=== PATIENT | female | born 1940 | race Caucasian/White ===

== ENCOUNTER 2019-06-09 11:00 | Outpatient (RCR) | payer MEDICARE, SELFPAY ==
--- NOTE | 2019-03-29 09:34 | WPDANESPN ---
Anes - Prog Note Post-Op Date/Time: 03/29/19 09:34 Cardiovascular status: normal Respiratory status: normal Airway patency: baseline Mental status: baseline Post-Op hydration status: normal Pain Score (VAS): 0/10. Patient resting in bed at time of assessment, appears comfortable. Nausea with relief with pain meds. Post-procedural complaints: nausea (relief with prn meds) Patient Feedback: Patient satisfied with anesthetic care.
--- NOTE | 2019-04-04 11:53 | PTOPEVAL ---
PHYSICAL THERAPY EVALUATION AND PLAN OF CARE Thank you for referring this patient to [facility]. Jocelyn is scheduled to be seen in OP PT 2x/week for 4 weeks. Please review, sign, date and return this plan of care LUANA. I agree with and certify that the following plan of care is medically necessary. Referring Physician Date Attending Provider: Yann Spears MD Evaluation Outpatient Past Medical History Neurological History Hx Neurological Disorders No Significant History Cardiovascular History Hx Hypercholesterolemia Yes: NO MEDS Hx Hypertension Yes Hx Mitral Valve Prolapse Yes Hx Vascular Surgery Yes: FERMIN CAROTID ENDARTERECTOMY 1995 Respiratory History Hx Respiratory Disorders No Significant History Gastrointestinal History Hx Appendectomy Yes Hx Cholecystectomy Yes Hx Gastroesophageal Reflux Disease Yes Hx Hemorrhoids Yes Hx Other Gastrointestinal Disorders Yes: HIATAL HERNIA Genitourinary History Hx Genitourinary Disorders No Significant History Musculoskeletal History Hx Arthritis Yes: GENERALIZED Hx Osteoporosis Yes Hx Spinal Surgery Yes: LUMBAR LAMINECTOMY Hx Other Musculoskeletal Disorders Yes: OA LT KNEE Endocrine History Hx Hypothyroidism Yes: TAKES MED AT HS HEENT History Hx Other HEENT Disorders Yes: TMJ Integumentary History Hx Skin Disorders No Significant History Reproductive History Hx Hysterectomy Yes: 1972 Hx Other Reproductive Disorders Yes: 2010 FERMIN SALPINGO- OOPHORECTOMY Psychosocial History Hx Psychiatric Disorders No Significant History Pain History Has Past Pain Affected Your Daily Life Yes: LT KNEE Anesthesia History Hx Anesthesia Reactions No Significant History Evaluation Information Problem Diagnosis left TKA Onset 03/28/19 Subjective Information Jocelyn is here today 1 week s/p Query Text:As Reported By Patient/ left TKA. She states that her Family medical staff believes she is doing well, but she did have some constipation. Otherwise she is doing well. She does have quite a bit of pain and swelling. She and her family are working to do as instructed with home exercises . Pain Assessment Self Report Pain Assessment Left Knee(s) Pain Description Aching,Sharp Pain Frequency Acute,Continuous Current Pain Intensity 3 Lowest Pain Intensity 3 Greatest Pain Intensity 6 Pa
--- NOTE | 2019-05-03 08:55 | PTOPEVAL ---
PHYSICAL THERAPY PLAN OF CARE UPDATE AND PROGRESS REPORT Thank you for referring this patient to [facility]. Jocelyn will continue PT 2x/week for 3 weeks. She returns to visit surgeon on 05/24/2019. Please review, sign, date and return this plan of care LUANA. I agree with and certify that the following plan of care is medically necessary. Referring Physician Date Attending Provider: Yann Spears MD Evaluation Information Problem Diagnosis left TKA Onset 03/28/19 Subjective Information Jocelyn is here today 5 weeks s/ Query Text:As Reported By Patient/ p left TKA. Jocelyn reports Family that her pain is gradually decreasing and she is gradually taking less pain medications. Reports that some mornings the knee is tighter than other mornings. Walks around the house without an assistive device. Uses a straight cane in the community Self Report Pain Assessment Left Knee(s) Reported Pain Level 2 Pain Description Aching,Sharp Pain Frequency Acute,Continuous Pain Aggravating Factors Exercise/Activity,Palpation, Stair Climbing,Walking Pain Score Pain Score 2: Self Report Additional Pain Score Comments slowly decreasing pain medication, feels pretty good this morning Knee Range of Motion Left Knee Flexion Range of Motion - Active 90 Knee Flexion Range of Motion - Passive 106 Knee Extension Range of Motion - Active -5 Query Text: Knee Range of Motion Limitations Pain,Soft Tissue Restriction Knee Range of Motion Comments spongey end feel during PROM indicating that more ROM is available Hip Strength Left Hip Flexion Strength 4 Good Hip Extension Strength 4- Good - Knee Strength Left Knee Flexion Strength 4 Good Knee Extension Strength 4- Good - Palpation continues to report hypersensitivity over lower leg and incision site; distal end of incision is mildly adhesed -- instructed to use gentle lotion to gentle improve mobility of scar Gait Assessment Ambulation Assistive Devices Cane Weight Bearing Status - Left As Tolerated Weight Bearing Status - Right Full Maintains Weight Bearing Status Yes Weight Bearing Comment throughout appointment Ambulat
--- NOTE | 2019-05-26 08:55 | PTOPEVAL ---
PHYSICAL THERAPY PLAN OF CARE UPDATE AND PROGRESS REPORT Thank you for referring this patient to [facility]. Jocelyn will continue 2x/week for 4 weeks. Please review, sign, date and return this plan of care LUANA. I agree with and certify that the following plan of care is medically necessary. Referring Physician Date Attending Provider: Yann Spears MD Evaluation Information Diagnosis left TKA Onset 03/28/19 Subjective Information Jocelyn is here today 9 weeks s/ Query Text:As Reported By Patient/ p left TKA. Jocelyn saw Family physician recently who will see her in a year and recommended two techniques to help increased knee flexion and extension. Also reports he requests another month of therapy. Jocelyn has good days and bad days. No longer uses an assistive device. Reports she does her exerises regularly. Reported Pain Level 3 Interventions Used By Clinicians Exercise Knee Range of Motion Left Knee Flexion Range of Motion - Active 99 Knee Flexion Range of Motion - Passive 108 Knee Extension Range of Motion - Active -5 Query Text: Knee Range of Motion Limitations Pain,Soft Tissue Restriction Hip Strength Left Hip Flexion Strength 4+ Good + Hip Extension Strength 4+ Good + Knee Strength Left Knee Flexion Strength 5 Normal Knee Extension Strength 4+ Good + Gait Assessment Ambulation Assistive Devices None Weight Bearing Status - Left As Tolerated Weight Bearing Status - Right Full Maintains Weight Bearing Status Yes Ambulation Destination In Gym Ambulation Ability Independent Gait Pattern Assessment Gait Pattern Antalgic Gait Gait Pattern Observed Decreased Stride Length - Left Other Gait Observations decreased toe off left with decreased DF and knee flexion Stair Climbing Assessment Stair Climbing Assistive Devices Railings Weight Bearing Status - Left As Tolerated Weight Bearing Status - Right Full Maintains Weight Bearing Status Yes Number of Steps Climbed (Steps) 4 Number of Repetitions (Repetitions) 4 Technique Alternating Steps Stair Climbing Direction Both Up and Down Stair Climbing Ability Independent Clinical Summary Joceyln is 9 weeks s/p left TKA. She is progressing to meet her functional goals. Her ROM continues to be her greatest
--- NOTE | 2019-06-02 08:00 | PCPTNOTE ---
Patient called & cancelled scheduled appointment this date due to her knees bothering her.
--- NOTE | 2019-06-14 08:49 | PCPTNOTE ---
Patient called & cancelled scheduled appointment this date due to her knees bothering her. She states she will try to be here .
--- NOTE | 2019-06-16 08:44 | PCPTNOTE ---
Patient called & cancelled scheduled appointment today, 06/16/2019, and for her next and last scheduled appointment on 06/21/2019 due to concerns regarding Ken virus (COVID-19)
--- NOTE | 2019-06-20 11:28 | PCPTNOTE ---
PHYSICAL THERAPY DISCHARGE NOTE Attending Provider: Yann Spears MD Patient:Jocelyn Escoto Date of :1940 Jocelyn called to cancel her remaining appointments in order to self-quarantine per CDC guidelines as an at risk patient for acquiring COVID-19. Her last measured ROM without overpressure was lacking 8 degrees of extension and 104degrees of flexion. Her last appointment was on 06/09/2019. The goals have been partially achieved. If further services are needed, please communicate with us to arrange the services. Thank you for referring Ms. Escoto to [facility]. Please review, sign, date and return this discharge summary LUANA. I have been updated about the patient's current status and I agree with discharge from the above service at this time. Referring Physician Date
== END 2019-06-20 12:13 | disposition home or self-care (01) ==
LOC: ANHPT 11:00
PROVIDERS: PCP Internal Medicine; Visit Provider Orthopaedic Surgery
DX: Z47.1 Aftercare following joint replacement surgery (principal); M17.12 Unilateral primary osteoarthritis, left knee; Z96.652 Presence of left artificial knee joint
CPT/HCPCS: 97110; 97140; 97162

== ENCOUNTER → 2020-11-20 07:35 | Outpatient (CLI) | payer MEDICARE, SELFPAY ==
--- NOTE | ~2020-11-20 | MM_ITS ---
EXAMINATION: MM screening rama BI w malou HISTORY: Screening mammogram TECHNIQUE: Craniocaudal and mediolateral oblique 3-D tomosynthesis images were obtained and synthetic 2-D images were generated. CAD analysis was submitted and interpreted. COMPARISON: 11/29/2016, 11/19/2015, 11:15 BREAST PARENCHYMAL COMPOSITION: The breasts are almost entirely fatty. FINDINGS: There is no evidence of suspicious mass, calcification, or architectural distortion to sugg est malignancy in either breast. There has been no suspicious interval change. IMPRESSION: 1. No mammographic evidence of malignancy. 2. Recommend routine screening mammography while the patient remains in good health. BI-RADS Category 1: Negative Reviewed, dictated and finalized at location A. IMPRESSION: 1. No mammographic evidence of malignancy. 2. Recommend routine screening mammography while the patient remains in good he alth. BI-RADS Category 1: Negative
== END ==
PROVIDERS: PCP Internal Medicine; Visit Provider Internal Medicine
DX: Z12.31 Encounter for screening mammogram for malignant neoplasm of breast (principal)
CPT/HCPCS: 77063; 77067

== ENCOUNTER 2021-10-08 19:45 | Emergency (ER) | payer MEDICARE, SELFPAY ==
[2021-10-08] VITALS (30 sets, daily range): BP systolic 124–148; BP diastolic 48–99; PULSE 50–65; RESP 10–17; O2SAT 89–95
--- NOTE | ~2021-10-08 | CT_ITS ---
EXAMINATION: CT lumbar spine wo con DATE: 10/08/2021 22:24 INDICATION: fall/pain . TECHNIQUE: Computed tomography (CT) of the lumbar spine was performed without intravenous contrast. A utomated exposure control and iterative reconstruction technique were employed. The dose-length produ ct was 1012.41 mGy-cm. COMPARISON: None. FINDINGS: 5 nonrib-bearing lumbar-type vertebral bodies. Pedicles intact. No pars defect. Normal vert ebral body alignment. Moderate height loss at L1, with fracture lines involving both the anterior and posterior cortices of the vertebral body. 2 mm retropulsion of fragments. Moderate L1-2 central akhil l stenosis caused by a large central osteophyte. The irregularities seen in the prior lumbar spine ra diograph at L3 and L4 are not acute fractures and likely relate to degenerative change. Severe L3-4 a nd L5-S1 central canal stenosis secondary to degenerative disc and facet changes. Multilevel moderate bilateral neural foraminal narrowing. Multilevel severe facet arthropathy. IMPRESSION: 1. L1 burst fracture, with minimal 1 to 2 mm retropulsion of fracture fragments. No other fracture de tected. 2. Severe central canal stenosis at L3-4 and L5-S1. 3. Multilevel severe facet arthropathy Reviewed, dictated and finalized at location K. IMPRESSION: 1. L1 burst fracture, with minimal 1 to 2 mm retropulsion of fracture fragments . No other fracture detected. 2. Severe central canal stenosis at L3-4 and L5-S1. 3. Multilevel severe facet arthropathy
--- NOTE | ~2021-10-08 | XR_ITS ---
EXAM: XR lumbar spine 2-3V DATE: 10/08/2021 20:54 HISTORY: FALL AT [facility], LOWER BACK PAIN . COMPARISON: None available. FINDINGS: Cholecystectomy clips. 5 nonrib-bearing lumbar-type vertebral bodies. Severely decreased b one mineral density. Moderate anterior wedge deformity at L1. Concave superior endplate deformity wit h anterior cortical irregularity at L3 and L4. Vertebral body alignment intact. 3.4 cm abdominal aort ic aneurysm. IMPRESSION: Severe osteoporosis. Moderate wedge compression fracture of L1. Subtle superior endplate fractures may be present at L3 and L4. These abnormalities are age-indeterminate, correlate with acut e pain/tenderness. Reviewed, dictated and finalized at location K. IMPRESSION: Severe osteoporosis. Moderate wedge compression fracture of L1. Sub tle superior endplate fractures may be present at L3 and L4. These abnormalitie s are age-indeterminate, correlate with acute pain/tenderness.
[2021-10-08] MEDS: ONDANSETRON INJ 4 MG/2 ML VIAL IV PUSH (20:37)
--- NOTE | 2021-10-08 21:58 | ED.FALL ---
HPI - Fall General Chief Complaint: Fall <Fabian Mcdaniel MD - Last Filed: 10/08/21 22:02> Stated Complaint: FALL WITH BACK PAIN <Fabian Mcdaniel MD - Last Filed: 10/08/21 22:02> Time Seen by Provider: 10/08/21 19:55 <Fabian Mcdaniel MD - Last Filed: 10/08/21 22:02> History of Present Illness HPI Narrative: Patient is an 81-year-old female who presents ER with low back pain. Patient was bending over to get a plug for her iPad when he she fell backwards onto her buttock. She reports she developed sudden onset pain to her low back at the level of L4 and L5. She has no numbness or tingling to her legs or groin. She has pain with attempting to stand up or leaning forward. She did not strike her head or lose consciousness. Patient reports history of bulging disks in the past. Received morphine by EMS for pain. Pain is 5/10 at rest and 6/10 with moving. Sharp and nonradiating. Patient reports nausea related to her morphine administration. <Fabian Mcdaniel MD - Last Filed: 10/08/21 22:02> Related Data Home Medications: Home Medications Medication Instructions Recorded Confirmed levothyroxine 100 mcg tablet 100 mcg PO HS 03/09/19 05/23/21 atorvastatin 80 mg tablet 80 mg PO DAILY 04/11/21 05/23/21 pantoprazole 40 mg tablet,delayed tablet PO 04/11/21 05/23/21 release apixaban 5 mg tablet (Eliquis) 5 mg PO BID 05/23/21 05/23/21 losartan 50 mg tablet 50 mg PO BID 05/23/2122 <Fabian Mcdaniel MD - Last Filed: 10/08/21 22:02> Allergies/Adverse Reactions: Allergies Allergy/AdvReac Type Severity Reaction Status Date / Time amlodipine Allergy Unknown Unknown Verified 07/04/21 09:32 amoxicillin Allergy Unknown Nausea Verified 10/08/21 19:57 atenolol [From Tenormin] Allergy Unknown Gastrointestinal Verified 07/04/21 09:32 Upset gadobenic acid Allergy Unknown Swelling Verified 10/08/21 19:57 [From CONTRAST-MRI] iohexol Allergy Unknown Swelling Verified 10/08/21 19:57 [From CONTRAST - CT, XRAY] nitrofurantoin Allergy Unknown Unknown Verified 07/04/21 09:32 Sulfa (Sulfonamide Allergy Unknown unknown Verified 10/08/21 19:57 Antibiotics) aspirin AdvReac Unknown Abdominal Verified 10/08/21 19:57 Pain Contrast Media Allergy Unknown Swelling Uncoded 10/08/21 19:57 <Fabian Mcdaniel MD - Last Filed: 10/08/21 22:02> Review of Systems Review of Systems: All systems reviewed & are unremarkable except as noted in HPI and below <Fabian Mcdaniel MD - Last Filed: 10/08/21 22:02> Gastrointestinal: Gastrointestinal: Denies abdominal pain, Reports nausea and Reports vomiting <Fabian Mcdaniel MD - Last Filed: 10/08/21 22:02> Genitourinary: Genitourinary: Denies dysuria and Denies urinary incontinence <Fabian Mcdaniel MD - Last Filed: 10/08/21 22:02> Musculoskeletal: Musculoskeletal: Reports back pain, Denies arthralgias and Denies joint swelling <Fabian Mcdaniel MD - Last Filed: 10/08/21 22:02> Integumentary/Breasts: Skin/Breast: Denies erythema and Denies rash <Fabian Mcdaniel MD - Last Filed: 10/08/21 22:02> Neurologic: Denies syncope, Denies headache(s), Denies focal weakness and Denies numbness <Fabian Mcdaniel MD - Last Filed: 10/08/21 22:02> [facility] Past Medical History Medical History: Medical History (Updated 10/08/21 @ 23:04 by Varinder Desai MD) Arthritis Bulging discs Cardiac arrhythmia Fracture of surgical neck of left humerus Gastric ulcer HLD (hyperlipidemia) Hypertension Hypothyroidism MVP (mitral valve prolapse) Osteoarthritis of knee Osteoporosis PVD (peripheral vascular disease) Torn rotator cuff right Ulcer <Fabian Mcdaniel MD - Last Filed: 10/08/21 22:02> Surgical History Surgical History: Surgical History H/O section H/O Spinal surgery H/O: hysterectomy History of appendectomy History of cholecystectomy History of end
[2021-10-08] MEDS: fentaNYL CITRATE INJ (*CRX) 100 MCG/2 ML VIAL 25 MCG IV PUSH (22:03)
[2021-10-09 00:01] VITALS: BP 130/48; PULSE 61; RESP 13; O2SAT 93
== END 2021-10-09 00:02 | disposition short-term general hospital (02) ==
PROVIDERS: Emergency Provider Emergency Medicine; PCP Internal Medicine
DX: S32.001A Stable burst fracture of unspecified lumbar vertebra, initial encounter for closed fracture (principal); M19.90 Unspecified osteoarthritis, unspecified site; E78.5 Hyperlipidemia, unspecified; I10 Essential (primary) hypertension; E03.9 Hypothyroidism, unspecified; W18.30XA Fall on same level, unspecified, initial encounter
CPT/HCPCS: 72100; 72131; 96374; 96375; 99285; J2405; J3010

== ENCOUNTER 2024-03-16 12:14 | Emergency (ER) | payer MEDICARE, SELFPAY ==
[2024-03-16] VITALS (11 sets, daily range): BP systolic 109–143; BP diastolic 40–98; PULSE 50–60; RESP 12–17; TEMP 36.2; O2SAT 77–100
--- NOTE | ~2024-03-16 | CT_ITS ---
CT head without contrast Indication: Status post fall Technique: Serial scans were obtained through the brain without the administration of contrast. Dose reduction technique was used on this scan by utilizing automated exposure control and iterative recon struction technique. The dose-length product (DLP) was 681.00 mGy-cm. Findings: There is no evidence of intracranial hemorrhage, mass lesion, or acute infarct. Extensive c hronic right MCA distribution/right frontal lobe infarct present. Chronic lacunar infarct noted in th e left external capsule. The ventricles and subarachnoid spaces are dilated, consistent with mild to moderate atrophy. Low attenuation regions are seen within the periventricular white matter bilateral ly, likely representing changes from chronic microvascular ischemic disease. There is no evidence of edema, mass effect or midline shift. The visualized paranasal sinuses and mastoid air cells are vamsi ar. Impression: No intracranial hemorrhage, mass, or acute infarct. Chronic infarcts, as above. Atrophy and chronic white matter changes, as above. Reviewed, dictated and finalized at location . RD LABEL INTERN Impression: No intracranial hemorrhage, mass, or acute infarct. Chronic infarcts, as above. Atrophy and chronic white matter changes, as above.
--- NOTE | ~2024-03-16 | XR_ITS ---
Portable chest x-ray Comparison: 11/29/2018 Clinical History: Hip fracture Findings: Lungs are clear, without focal consolidation or pleural effusion. Cardiomediastinal silho uette is stable, with pacemaker device. Bones and soft tissues are unremarkable. Impression: Clear lungs. Reviewed, dictated and finalized at location . W EYE ASSEMBLER Impression: Clear lungs.
--- NOTE | ~2024-03-16 | XR_ITS ---
XR hip LT 2V w AP pelvis 03/16/2024 13:07 Indication: Status post recent fall. Hip pain. Procedure: AP pelvis and 3 views left hip Comparison: No prior studies for comparison. Findings: There is a comminuted proximal left femoral fracture with displacement and valgus angulatio n. The fracture originates superiorly at the level of the greater tuberosity extending inferior later ally into the proximal femoral metaphysis. There is a spiral component. There is osteoarthritis of th e hips and lower lumbar spine. There is a sclerotic lesion of the right femur proximally which may re present a bone island, although metastatic disease is not excluded if there is a known history of mal ignancy. Impression: 1: Displaced, angulated and comminuted proximal left femoral fracture. 2: Sclerotic lesion right femur proximally. If there is a history of malignancy, consider correlation with nuclear bone scan. Reviewed, dictated and finalized at location B. NG FINISHER AND STUFFER Impression: 1: Displaced, angulated and comminuted proximal left femoral fracture. 2: Sclerotic lesion right femur proximally. If there is a history of malignancy , consider correlation with nuclear bone scan.
--- NOTE | ~2024-03-16 | XR_ITS ---
[id number] 03/16/2024 13:07 Indication: Left knee pain after fall Procedure: 2 views left knee Comparison: No prior studies for comparison. Findings: There is a left total knee arthroplasty. Prosthesis well seated. No fracture or traumatic m alalignment. Mild varus angulation. No significant joint effusion. Impression: 1: No acute bone or joint abnormality. Reviewed, dictated and finalized at location B. C APPLICATION DEVELOPER Impression: 1: No acute bone or joint abnormality.
--- NOTE | ~2024-03-16 | CT_ITS ---
Noncontrast CT scan of the cervical spine Technique: Multiple contiguous axial [address] images of the cervical spine were obtained and rec onstructed in 2D sagittal and coronal planes on the acquisition scanner. Dose reduction technique was used on this scan by utilizing automated exposure control, adjustment of the mA and/or kV according to patient size. The dose-length product (DLP) was 156.30 mGy-cm. Clinical History: Pain Findings: No fractures or dislocations. There is mild to moderate degenerative disc narrowing throug hout the cervical spine. There is degenerative change at the articulation of the odontoid process wit h the anterior arch of C1. There is bilateral neural foraminal narrowing at C3-C4 with disc osteophyt e complex and bilateral facet arthropathy. There is bilateral neural foraminal narrowing at C4-C5, pr ominent bilateral facet arthropathy. There is bilateral neural foraminal narrowing at C5-C6, with lef t facet arthropathy in particular. There is diffuse mild uncovertebral degenerative change in the cer vical spine. No prevertebral soft tissue swelling. Impression: No fracture or subluxation of the cervical spine. Degenerative change, as above. Reviewed, dictated and finalized at location . EXPERIENCE ANALYST Impression: No fracture or subluxation of the cervical spine. Degenerative change, as above.
--- NOTE | 2024-03-16 13:37 | ED.FALL ---
HPI - Fall General Chief Complaint: Fall Stated Complaint: fall Time Seen by Provider: 03/16/24 12:19 Source: patient, family and EMS Mode of arrival: EMS Limitations: no limitations History of Present Illness HPI Narrative: 84-year-old with the history of CVA, AVD on Eliquis, hypertension, burst fracture of her lumbar spine here with a complaint of fall. Patient states that she was coming out of her shower lost her balance hit her head against the shower, no LOC complains of head and neck pain as well as left hip and knee pain. Denies any chest pain or shortness of breath MD complaint: fall Onset (ago): hour(s) (1) Fall from: standing Fall witnessed: yes, by family Place fall occurred: home Loss of consciousness: none Prolonged down time: no Symptoms prior to fall: none Location of injury: head Associated symptoms (after fall): denies Related Data Home Medications ?Medication ?Instructions ?Recorded ?Confirmed ?Last Taken ?Type levothyroxine 100 mcg tablet 100 mcg PO HS 03/09/19 05/23/21 1 Day Ago History ~03/27/19 atorvastatin 80 mg tablet 80 mg PO DAILY 04/11/21 05/23/21 Unknown History pantoprazole 40 mg tablet,delayed tablet PO 04/11/21 05/23/21 Unknown History release apixaban 5 mg tablet (Eliquis) 5 mg PO BID 05/23/21 05/23/21 Unknown History losartan 50 mg tablet 50 mg PO BID 05/23/21 05/23/21 Unknown History Allergies Allergy/AdvReac Type Severity Reaction Status Date / Time amlodipine Allergy Unknown Unknown Verified 07/04/21 09:32 amoxicillin Allergy Unknown Nausea Verified 10/08/21 19:57 atenolol (From Tenormin) Allergy Unknown Gastrointestinal Verified 07/04/21 09:32 Upset gadobenic acid (From Allergy Unknown Swelling Verified 10/08/21 19:57 CONTRAST-MRI) iohexol (From CONTRAST - CT, Allergy Unknown Swelling Verified 10/08/21 19:57 XRAY) nitrofurantoin Allergy Unknown Unknown Verified 07/04/21 09:32 Sulfa (Sulfonamide Allergy Unknown unknown Verified 10/08/21 19:57 Antibiotics) morphine AdvReac Intermediate Hallucinati Verified 03/16/24 12:28 ng aspirin AdvReac Unknown Abdominal Verified 10/08/21 19:57 Pain Contrast Media Allergy Unknown Swelling Uncoded 10/08/21 19:57 Review of Systems Review of Systems: All systems reviewed & are unremarkable except as noted in HPI and below Constitutional: Constitutional: Reports no additional constitutional complaints Eyes: Eyes: Reports no additional eye complaints ENT: Reports system reviewed and no additional complaints, except as documented Cardiovascular: Cardiovascular: Reports no additional cardiovascular complaints Respiratory: Respiratory: Reports no additional respiratory complaints Gastrointestinal: Gastrointestinal: Reports no additional gastrointestinal complaints Musculoskeletal: Musculoskeletal: Reports as per HPI Neurologic: Reports system reviewed and no additional complaints, except as documented Psychiatric: Psychiatric: Reports no additional psychiatric complaints [facility] Past Medical History Medical History Fracture of surgical neck of left humerus MVP (mitral valve prolapse) Gastric ulcer Bulging discs Torn rotator cuff right HLD (hyperlipidemia) Hypothyroidism Arthritis PVD (peripheral vascular disease) Osteoarthritis of knee Ulcer Osteoporosis Cardiac arrhythmia Hypertension Surgical History Surgical History H/O Spinal surgery H/O section H/O: hysterectomy History of cholecystectomy History of appendectomy History of endarterectomy (~1995) b/l History of total left knee replacement March 2019 Family History Family History Mother Hypertension Lung cancer Father CAD (coronary artery disease) Hx of CABG Social History Social History Social History: Patient lives at home with her . She is a Jehovah Witness and does not wish to receive blood products due to restoration reasons. Speaking with her, it appears she primarily seeks homeopathic medicine for certain treatments. She wants her daughter, Carmelita Alcocer, to be her surrogate medical decision maker. She is listed as a Full code. Her PCP is Dr. Chandan Hill. Smoking status: Never smoker Second hand tobacco smoke exposure: No Alcohol intake: never Substance use: never Living arrangements: with family Gender identity (if verbalized by the patient): Female Spiritual care concerns: Yes Agree to blood products: No Exam Narrative: GENERAL: Well-appearing, well-nourished, and in no acute distress. HEAD: Normocephalic, atraumatic. EYES: PERRLA and EOMI. ENT: Nares clear,. Mucous membranes moist. NECK: Supple. in C-collar CHEST: Clear to auscultation. No respiratory distress. HEART: Regular rate and rhythm. No murmur heard. Normal peripheral pulses. ABDOMEN: Soft, nontender, nondistended, normal active bowel sounds. EXTREMITIES: Normal range of motion. No edema. left knee in flexion position mild tenderness in the left knee SKIN: Warm, dry, no rash. NEURO: No focal deficits. Alert and oriented x3. PSYCH: Normal mood and affect. Course Course Emergency Course: patient upon arrival is alert awake, her pain is well controlled she was given fentanyl by EMS. inform patient and the family about her CT and x-ray findings. I discussed with Dr. Diaz recommended patient to be transferred to trauma center . I discussed with Dr. Deleon will accept pt to [facility] Vital Signs Vital signs: Vital Signs Temperature 36.2 C L 03/16/24 12:13 Pulse Rate 53 L 03/16/24 12:13 Respiratory Rate 12 03/16/24 12:13 Blood Pressure 143/61 H 03/16/24 12:13 Pulse Oximetry 98 03/16/24 12:13 Oxygen Delivery Room Air 03/16/24 12:13 Temperature 36.2 C L 03/16/24 12:13 Pulse Rate 54 L 03/16/24 16:55 Respiratory Rate 12 03/16/24 16:55 Blood Pressure 117/98 H 03/16/24 16:55 Pulse Oximetry 100 03/16/24 16:55 Oxygen Delivery Nasal Cannula 03/16/24 14:15 Oxygen Flow Rate 3 03/16/24 14:15 MDM - Fall Lab Data Attestation: I reviewed the patient's lab results. 03/16/24 13:47 03/16/24 13:47 Labs: Lab Results 03/16/24 Range/Units 13:47 WBC 12.1 H (4.5-10.0) K/mm3 RBC 3.78 L (4.2-5.4) M/mm3 Hgb 11.4 L (12.0-15.0) g/dL Hct 36.4 L (37.0-47.0) % MCV 96.3 (80-100) fl MCH 30.2 (26-34) pg MCHC 31.3 L (32-36) g/dl RDW 13.7 (11.5-14.5) % Plt Count 201 (150-375) k/mm3 MPV 8.6 (7.4-10.4) fl Immature Gran % (Auto) 0.7 H (0-0.5) % Neut % (Auto) 77.2 H (45.5-73.1) % Lymph % (Auto) 14.9 L (18.3-44.2) % [place] % (Auto) 5.5 (2.6-8.5) % Eos % (Auto) 1.4 (0-4.4) % Baso % (Auto) 0.3 (0.2-1.2) % Lymph # (Auto) 1.80 (0.9-3.2) K/mm3 [place] # (Auto) 0.7 H (0.1-0.6) K/mm3 Eos # (Auto) 0.2 (0-0.3) K/mm3 Baso # (Auto) 0.0 (0.0-0.1) K/mm3 Abs Immat Gran (auto) 0.08 H (0.00-0.031) K/mm3 Absolute Neuts (auto) 9.4 H (1.3-6.7) K/mm3 Absolute Nucleated RBC 0.000 (0.0-0.012) K/mm3 Nucleated RBC % 0.0 (0.0-0.2) % PT 15.0 H (11.1-14.7) Seconds INR 1.2 Sodium 134 L (137-145) mmol/L Potassium 3.9 (3.4-5.0) mmol/L Chloride 106 (98-107) mmol/L Carbon Dioxide 28 (22-30) mmol/L Anion Gap 0 L (4-12) mmol/L BUN 17 (7-17) mg/dL Creatinine 0.80 (0.7-1.0) mg/dL Estim Creat Clear Calc 36 ml/min Estimated GFR > 60 (59 - ) Glucose 135 H (65-110) mg/dL Calcium 8.9 (8.4-10.2) mg/dL Total Bilirubin 0.6 (0.2-1.3) mg/dL AST 32 (14-36) U/L ALT 17 (6-35) U/L Alkaline Phosphatase 121 (38-126) U/L Total Protein 6.0 L (6.3-8.2) g/dL Albumin 3.8 (3.5-5.1) g/dL Imaging Data Radiologist's impression: ITS Impressions Head CT 03/16/24 13:07 Impression: No intracranial hemorrhage, mass, or acute infarct. Chronic infarcts, as above. Atrophy and chronic white matter changes, as above. Cervical Spine CT 03/16/24 13:08 Impression: No fracture or subluxation of the cervical spine. Degenerative change, as above. Knee X-Ray 03/16/24 13:08 Impression: 1: No acute bone or joint abnormality. Hip/Pelvis X-Ray 03/16/24 13:09 Impression: 1: Displaced, angulated and comminuted proximal left femoral fracture. 2: Sclerotic lesion right femur proximally. If there is a history of malignancy, consider correlation with nuclear bone scan. Chest X-Ray 03/16/24 13:10 Impression: Clear lungs. Discharge Plan Discharge Clinical Impression: Femur fracture, left Qualifiers: Encounter type: initial encounter Femur location: subtrochanteric Fracture type: closed Fracture alignment: displaced Qualified Code(s): S72.22XA - Displaced subtrochanteric fracture of left femur, initial encounter for closed fracture Patient Disposition: Acute Care Hospital Condition: Stable Patient Language: Urdu Prescriptions: No Action atorvastatin 80 mg tablet 80 mg PO DAILY pantoprazole 40 mg tablet,delayed release (DR/EC) PO levothyroxine 100 mcg tablet 100 mcg PO HS Eliquis 5 mg tablet 5 mg PO BID losartan 50 mg tablet 50 mg PO BID Follow-up/Referrals: Sergio,Chandan Rabago MD [Primary Care Provider] - Time of Disposition: 17:21
[2024-03-16] MEDS: fentaNYL CITRATE INJ (*CRX) 100 MCG/2 ML VIAL 50 MCG IV PUSH ×3 (14:03→18:45)
[2024-03-16] MEDS: ONDANSETRON INJ 4 MG/2 ML VIAL IV PUSH (14:03)
[2024-03-16 14:06] LABS: Basophils Percent Auto 0.3 % (0.2-1.2); Eosinophils Absolute Auto 0.2 K/mm3 (0-0.3); Eosinophils Percent Auto 1.4 % (0-4.4); Hematocrit 36.4 % (37.0-47.0); Hemoglobin 11.4 g/dL (12.0-15.0); Immature Granulocyte Absolute 0.08 K/mm3 (0.00-0.031); Immature Granulocyte Percent A 0.7 % (0-0.5); Lymphocytes Percent Auto 14.9 % (18.3-44.2); Mean Corpuscular HGB Conc 31.3 g/dl (32-36); Mean Corpuscular Hemoglobin 30.2 pg (26-34); Mean Corpuscular Volume 96.3 fl (80-100); Mean Platelet Volume 8.6 fl (7.4-10.4); Monocytes Absolute Auto 0.7 K/mm3 (0.1-0.6); Monocytes Percent Auto 5.5 % (2.6-8.5); Neutrophils Absolute Auto 9.4 K/mm3 (1.3-6.7); Neutrophils Percent Auto 77.2 % (45.5-73.1); Platelet Count Result 201 k/mm3 (150-375); Red Blood Count 3.78 M/mm3 (4.2-5.4); Red Cell Distribution Width 13.7 % (11.5-14.5); White Blood Count 12.1 K/mm3 (4.5-10.0)
[2024-03-16 14:13] LABS: Alanine Aminotransferase 17 U/L (6-35); Albumin Level 3.8 g/dL (3.5-5.1); Alkaline Phosphatase 121 U/L (38-126); Anion Gap 0 mmol/L (4-12); Aspartate Amino Transferase 32 U/L (14-36); Bilirubin,Total 0.6 mg/dL (0.2-1.3); Blood Urea Nitrogen 17 mg/dL (7-17); Calcium 8.9 mg/dL (8.4-10.2); Carbon Dioxide 28 mmol/L (22-30); Chloride 106 mmol/L (98-107); Estimated CRCL calculation 36 ml/min; Estimated Glomerular Filt Rate > 60; Glucose 135 mg/dL (65-110); Potassium 3.9 mmol/L (3.4-5.0); Sodium 134 mmol/L (137-145)
[2024-03-16 14:16] LABS: INR 1.2
--- NOTE | 2024-03-16 15:13 | PC.NURSE ---
Genet, pt caregiver at [facility] called for update on pt status. She states she would like to be notified of what hospital pt is transferred to via #[phone]
[2024-03-16] MEDS: SODIUM CHLORIDE 0.9% IV 1,000 ML 100 ML IV CONT (17:30)
== END 2024-03-16 18:50 | disposition short-term general hospital (02) ==
PROVIDERS: Emergency Provider Family Medicine; PCP Internal Medicine
DX: S72.22XA Displaced subtrochanteric fracture of left femur, initial encounter for closed fracture (principal); I10 Essential (primary) hypertension; I34.1 Nonrheumatic mitral (valve) prolapse; I73.9 Peripheral vascular disease, unspecified; E78.5 Hyperlipidemia, unspecified; E03.9 Hypothyroidism, unspecified; M17.9 Osteoarthritis of knee, unspecified; M81.0 Age-related osteoporosis without current pathological fracture; Z96.652 Presence of left artificial knee joint; Z86.73 Personal history of transient ischemic attack (TIA), and cerebral infarction without residual deficits; Z90.710 Acquired absence of both cervix and uterus; Z90.49 Acquired absence of other specified parts of digestive tract; Z79.01 Long term (current) use of anticoagulants; Z79.899 Other long term (current) drug therapy; M89.9 Disorder of bone, unspecified; W18.2XXA Fall in (into) shower or empty bathtub, initial encounter
CPT/HCPCS: 36415; 70450; 71045; 72125; 73502; 73560; 80053; 85025; 85610; 96361; 96374; 96375; 96376; 99285; J2405; J3010; J7030